=== PATIENT | male | born 1955 | race Caucasian/White ===

== ENCOUNTER 2016-12-09 08:42 | Inpatient (IN) | END 2016-12-13 21:07 | DRG 454 | DX: M51.37 Other intervertebral disc degeneration, lumbosacral region (principal); I97.51 Accidental puncture and laceration of a circulatory system organ or structure during a circulatory system procedure; I10 Essential (primary) hypertension; M40.37 Flatback syndrome, lumbosacral region; M48.06 Spinal stenosis, lumbar region; Z98.84 Bariatric surgery status; Y83.8 Other surgical procedures as the cause of abnormal reaction of the patient, or of later complication, without mention of misadventure at the time of the procedure; Y82.8 Other medical devices associated with adverse incidents; Y92.234 Operating room of hospital as the place of occurrence of the external cause; M41.86 Other forms of scoliosis, lumbar region; M53.2X7 Spinal instabilities, lumbosacral region; M79.652 Pain in left thigh; M79.651 Pain in right thigh; E03.9 Hypothyroidism, unspecified ==

== ENCOUNTER 2019-03-02 12:48 | Observation (INO) | payer MEDICARE, BC ==
[2019-02-26 15:58] VITALS: Ht 175.3 cm; Wt 89.5 kg
[2019-03-02] VITALS (19 sets, daily range): BP systolic 104–153; BP diastolic 52–82; PULSE 41–72; RESP 12–20
[~2019-03-02] VITALS: Ht 175.3 cm; Wt 89.5 kg
[~2019-03-02 12:48] MED LIST: AMLO-147 PO; ATEN-51 PO; ATEN50TA PO; CEFAZOLIN 2 GM/50 ML (PMX) 50 ML IVPB ONE; DIPH-232 PO; HYDR-3980 PO; LACTATED RINGER'S 1,000 ML IV SCH; LEVO50TA71 PO; LEVO50TA89 PO; LOPE2CAP PO; LOSA1TAB9 PO; NADO40TA31 PO; OXYC-380 PO; TAMS-14 PO
[2019-03-02] MEDS ORDERED: HYDROmorphONE 0.5 MG/0.5 ML SYG IV PRN (15:30)
[2019-03-02] MEDS ORDERED: BISACODYL 10 MG SUPP PR PRN (15:30)
[2019-03-02] MEDS ORDERED: AL HYDROX/MG HYDROX/SIMETH 30 ML CUP PO PRN (15:30)
[2019-03-02] MEDS ORDERED: CEPASTAT LOZENGE MT PRN (15:30)
[2019-03-02] MEDS ORDERED: DIPHENHYDRAMINE 50 MG INJ IV PRN (15:30)
[2019-03-02] MEDS ORDERED: ONDANSETRON 4 MG INJ IV PRN ×2 (15:30→16:00)
[2019-03-02] MEDS ORDERED: ACETAMINOPHEN 325 MG TAB PO PRN (15:30)
[2019-03-02] MEDS ORDERED: NALOXONE (0.4 MG/ML) INJ IV PRN (15:30)
[2019-03-02] MEDS ORDERED: DIPHENHYDRAMINE 25 MG CAP PO PRN (15:30)
[2019-03-02] MEDS ORDERED: CARISOPRODOL 350 MG TAB PO PRN (15:30)
[2019-03-02] MEDS ORDERED: HYDROCODONE/APAP (10/325) TAB PO PRN (15:30)
[2019-03-02] MEDS ORDERED: POLYMYXIN/BACITRACIN 1L IRRIG ONE (15:34)
[2019-03-02] MEDS ORDERED: BUPIVACAINE 0.25%/EPI (MDV) 50 ML VIAL INJ ONE (15:34)
[2019-03-02] MEDS ORDERED: THROMBIN 5000 UNIT (RECOTHROM) VIAL ONE (15:34)
[2019-03-02] MEDS ORDERED: LIDOCAINE 2% (SDV) 5 ML INJ ONE (15:53)
[2019-03-02] MEDS ORDERED: PROPOFOL 20 ML ONE ×2 (15:53→17:56)
[2019-03-02] MEDS ORDERED: ROCURONIUM 50 MG INJ ONE ×2 (15:53→16:52)
[2019-03-02] MEDS ORDERED: SUCCINYLCHOLINE CHLORIDE 100 MG/5 ML SYG IV ONE (15:55)
[2019-03-02] MEDS ORDERED: CEFAZOLIN 1 GM INJ ONE (15:55)
[2019-03-02] MEDS ORDERED: OXYCODONE/ACETAMINOPHEN (5/325) TAB PO PRN (16:00)
[2019-03-02] MEDS ORDERED: DESFLURANE 15 MIN ONE (16:00)
[2019-03-02] MEDS ORDERED: LABETALOL HCL 20MG INJ IV PRN (16:00)
[2019-03-02] MEDS ORDERED: MEPERIDINE 25 MG INJ IV PRN (16:00)
[2019-03-02] MEDS ORDERED: HYDROmorphONE 1 MG/5 ML IV SYRINGE IV PRN ×2 (16:00)
[2019-03-02] MEDS ORDERED: METOCLOPRAMIDE 10 MG INJ IV PRN (16:00)
[2019-03-02] MEDS ORDERED: KETOROLAC 30 MG INJ IV PRN (16:00)
[2019-03-02] MEDS ORDERED: hydrALAzine 20 MG INJ IV PRN (16:00)
[2019-03-02] MEDS ORDERED: ONDANSETRON 4 MG INJ ONE (16:31)
[2019-03-02] MEDS ORDERED: FAMOTIDINE 20 MG INJ ONE (16:32)
[2019-03-02] MEDS ORDERED: ATROPINE 1 MG/10 ML SYRINGE ONE (16:34)
[2019-03-02] MEDS ORDERED: HEMOSTATIC MATRIX SYG ZFS ONE (17:05)
[2019-03-02] MEDS ORDERED: ESMOLOL 10 ML ONE (17:56)
[2019-03-02] MEDS ORDERED: SUGAMMADEX SODIUM 200 MG/2 ML VIAL IV ONE (18:01)
[2019-03-02] MEDS: CEFAZOLIN 1 GM/50 ML (PMX) 50 ML IVPB SCH (18:36)
[2019-03-02] MEDS: HYDROmorphONE 1 MG/5 ML IV SYRINGE IV PRN ×2 (18:41→18:48)
[2019-03-02] MEDS: DOCUSATE SODIUM 100 MG CAP PO SCH (20:52)
[2019-03-02] MEDS: NADOLOL 40 MG TAB PO SCH (21:30)
[2019-03-02] MEDS: AMLODIPINE 10 MG TAB PO SCH (21:30)
[2019-03-02] MEDS: HYDROCODONE/APAP (10/325) TAB PO PRN (22:17)
[2019-03-02] MEDS: HYDROmorphONE 0.5 MG/0.5 ML SYG IV PRN (22:56)
[2019-03-02] MEDS ORDERED: HYDROmorphONE 1 MG/ML SYG IV PRN (23:00)
[2019-03-03] MEDS: D5W-0.45 NACL + KCL 20 MEQ 1,000 ML IV SCH ×3 (00:29→11:25)
[2019-03-03] MEDS: HYDROmorphONE 0.5 MG/0.5 ML SYG IV PRN (03:42)
[2019-03-03] MEDS: CEFAZOLIN 1 GM/50 ML (PMX) 50 ML IVPB SCH ×2 (03:42→11:52)
[2019-03-03] MEDS ORDERED: LEVOTHYROXINE 50 MCG TAB PO SCH (07:00)
[2019-03-03 07:37] VITALS: BP 124/67; PULSE 69; RESP 18
[2019-03-03] MEDS: HYDROCODONE/APAP (10/325) TAB PO PRN ×2 (07:58→11:56)
[2019-03-03] MEDS ORDERED: ACET/BUTAL/CAFF TAB PO PRN (08:30)
[2019-03-03] MEDS: NADOLOL 40 MG TAB PO SCH (09:00)
[2019-03-03] MEDS ORDERED: LOSARTAN 50 MG TAB PO SCH (09:00)
[2019-03-03] MEDS: DOCUSATE SODIUM 100 MG CAP PO SCH (09:12)
[2019-03-03] MEDS: AMLODIPINE 10 MG TAB PO SCH (09:13)
== END 2019-03-03 13:25 | disposition home or self-care (01) ==
LOC: SDS 12:48 → MS1 21:38
PROVIDERS: ADMIT Specialist; ATTEND Specialist
DX: T84.84XA Pain due to internal orthopedic prosthetic devices, implants and grafts, initial encounter (principal); M54.5 Low back pain; Z98.1 Arthrodesis status; I10 Essential (primary) hypertension; E03.9 Hypothyroidism, unspecified; K21.9 Gastro-esophageal reflux disease without esophagitis
CPT/HCPCS: 20680; 72110; 80048; 83735; 85025; 86999; 88304; 97110; 97116; 97161; G0378; J0461; J0690; J1170; J1200; J2405; J3010; J3480